=== PATIENT | male | born 1985 ===

== ENCOUNTER 2017-09-19 19:07 | Emergency (ER) | payer SELFPAY ==
[2017-09-19 19:45] VITALS: BP 129/62
[2017-09-19] MEDS ORDERED: TYLENOL PO ONE (19:45)
== END 2017-09-19 22:41 | disposition left against medical advice (07) ==
LOC: ED 19:07
DX: M54.9 Dorsalgia, unspecified (principal); R07.89 Other chest pain; Z53.21 Procedure and treatment not carried out due to patient leaving prior to being seen by health care provider
CPT/HCPCS: 87400